=== PATIENT | female | born 1935 | race Caucasian/White ===

== ENCOUNTER → 2024-03-27 10:32 | Outpatient (REF) | payer OTHER, SELFPAY ==
[2024-03-27 13:46] LABS: Free T4 2.08 ng/dl (0.78-2.19)
[2024-03-27 14:00] LABS: TSH 0.14 uIU/ml (0.47-4.68)
== END ==
LOC: OLABN 10:32
PROVIDERS: ATTENDING PHYSICIAN Student in an Organized Health Care Education/Training Program
DX: E03.9 Hypothyroidism, unspecified (principal)
CPT/HCPCS: 84439; 84443

== ENCOUNTER → 2024-04-25 09:53 | Outpatient (REF) | payer OTHER, SELFPAY ==
[2024-04-25 12:08] LABS: Free T4 1.59 ng/dl (0.78-2.19)
[2024-04-25 12:22] LABS: TSH 0.52 uIU/ml (0.47-4.68)
== END ==
LOC: OLABN 09:53
PROVIDERS: ATTENDING PHYSICIAN Student in an Organized Health Care Education/Training Program
DX: E03.9 Hypothyroidism, unspecified (principal)
CPT/HCPCS: 36415; 84439; 84443

== ENCOUNTER → 2024-05-23 11:06 | Outpatient (REF) | payer OTHER, SELFPAY ==
[2024-05-23 13:00] LABS: Blood Urea Nitrogen 24 mg/dl (7-17); Calcium 8.8 mg/dl (8.4-10.2); Carbon Dioxide 22 mmol/L (22-30); Chloride 104 mmol/L (98-107); Glucose 85 mg/dl (70-99); Potassium 3.6 mmol/L (3.5-5.1); Sodium 137 mmol/L (135-145); eGFR 48.33
== END ==
LOC: OLABN 11:06
PROVIDERS: ATTENDING PHYSICIAN Student in an Organized Health Care Education/Training Program
DX: I10 Essential (primary) hypertension (principal)
CPT/HCPCS: 36415; 80048; 83735

== ENCOUNTER 2024-06-21 06:39 | Emergency (ER) | payer OTHER, SELFPAY ==
[2024-06-21] VITALS (9 sets, daily range): BP systolic 114–150; BP diastolic 48–70; BMI 25.8
--- NOTE | 2024-06-21 06:58 | ED.GENMED ---
History of Present Illness
General
Chief Complaint: Cold/Flu/URI Symptoms
Source: records
Exam Limitations: dementia
Time Seen by Provider: 06/21/24 06:48
History of Present Illness
History of Present Illness:
89-year-old female presents with shortness of breath hypoxia and lethargy. Time course uncertain. Patient is unable to add history. Patient has no specific complaints. However she is moderately lethargic.
Past History
Past History
ED Past Medical History: Asthma, CAD, COPD, CVA, Fibromyalgia, GERD, HTN, Hypercholesterolemia, [place], Hypothyroidism, Psychiatric (depression, Bipolar), Other (DVT/PE, C-diff, PNA, Vertigo,) and Other (Past medical history includes a recent redo of a
discectomy at L4-L5,, osteoporosis,, degenerative joint disease, , pneumonia. Fx R ankle)
ED Past Surgical History: Cardiac (Cardiac catheterization, Stent), Gynecological (partial Hysterectomy), Tonsilectomy and Other (Laminectomy, left knee arthroscopy, foraminotomy, cataract surgery, left and right breast tumors removed, left foot
surgery)
Social History
Tobacco: Former smoker
Alcohol: None
Drug: None
Personal:
Living: halfway
Employment: Retired
Family History
Family History: Other (n/c)
Review of Systems
Review of Systems
Unable to obtain full review of systems at this time due to: dementia
All Other Systems: Not applicable
Phy Exam
Physical Exam
Physical Exam:
GENERAL: Elderly and frail. Lethargic. Will nod to her responses and speak mildly however does not seem to want to follow commands.
EYE: Orbits normal.
NECK: Supple, no significant adenopathy.
ENT: Pharynx without erythema
CARDIAC: Regular rate and rhythm without any obvious murmurs.
LUNGS: No respiratory distress but mild end expiratory wheezing diffusely
ABDOMEN: Soft, without focal tenderness or distention
NEUROLOGICAL: Lethargic. Nonfocal. Will follow some simple commands.
SKIN: Warm and dry, no rash or lesion, no discoloration, skin intact.
MUSCULOSKELETAL: No edema,no deformity.Good color
Course
Orders/Labs/Results
Orders:
Orders
06/21/24 06:56
Cardiac Monitoring- Treatment ONCE
IV Insert/Care/Rem.- Treatment PRN
Ipratropium/Albuterol Sulfate [Duoneb] 3 ml INH R NOW STA
O2 Therapy [RESP] Stat
Titrate/Wean O2 to maintain O2 sat greater than (%): 93
Pulse Ox/cont/shift [RESP] Stat
Quantity: 1
06/21/24 06:57
Electrocardiogram (*1) Stat
Reason for Study: Other
Other Reason for Exam: pneumonia
EKG- Treatment ONCE
CR Chest Portable - 1 View Urgent
Comment:
Reason For Exam: Short of breath/hypoxia
Reason Study Needs to be Portable: Unable to Transport
06/21/24 07:09
Basic Metabolic Panel Urgent
COVID-19 Antigen Urgent
Source: Nasal Swab
Complete Blood Count/With Diff Urgent
NT-proBNP Urgent
Troponin I Urgent
Influenza A+B Rapid Molecular Urgent
ALEX Source: Nasal Swab
Specimen Description:
06/21/24 09:14
Furosemide [Lasix] 20 mg IV ONCE ONE
Abnormal Lab Results
06/21/24
07:09
RBC 3.74 L 10^6/uL
(4.20-5.40)
Hgb 10.1 L g/dL
(12.0-16.0)
Hct 30.4 L %
(37.0-47.0)
MPV 10.6 H fL
(7.4-10.4)
Absolute Lymphs (auto) 0.5 L 10^3/uL
(1.2-3.4)
Neutrophils % 79.8 H %
(42.2-75.2)
Lymphocytes % 7.5 L %
(20.5-51.1)
BUN 27 H mg/dl
(7-17)
Creatinine 1.1 H mg/dL
(0.6-1.0)
Glucose 102 H mg/dl
(70-99)
06/21/24 07:09
06/21/24 07:09
Vital Signs
Initial and Last Documented VS:
Initial Vital Signs
Temp Pulse Resp BP Pulse Ox
99.6 F 86 26 147/70 93
06/21/24 06:43 06/21/24 06:43 06/21/24 06:43 06/21/24 06:43 06/21/24 06:43
Last Documented Vital Signs
Temp Pulse Resp BP Pulse Ox
99.6 F 84 21 138/58 97
06/21/24 06:43 06/21/24 08:00 06/21/24 08:00 06/21/24 08:00 06/21/24 08:00
MDM/Problems Addressed
Differential Diagnosis Includes:
Elderly female lethargy diffuse expiratory wheezing. Previous records reviewed. Workup in progress. Check for infectious etiology CHF.
*Pulse Oximetry
Patient hypoxic: yes
*Critical Care Note
Total Time (30-74mins, 75-104mins- exclusive of procedures): Not Applicable
Data Reviewed
Review of Other/Old Records Reveals: Labs, Records, Testing and Discharge Summary
Update Note
Update Note:
Patient resting comfortably in no distress. Lungs sound much better after nebulizer treatment. Room air pulse ox 93 to 95%. Discussed at length with daughter. Likely all a viral URI although there could be a mild component of CHF. Discussed
inpatient versus outpatient management. Patient is at a nursing facility. We are both comfortable with outpatient management. Patient would tolerate this much better given her dementia and underlying medical issues
ED Attending Note
-
Portions of this chart may have been created with voice recognition software.� Occasional wrong word or��sound alike� substitutions may have occurred due to the inherent limitations of voice recognition software.
Discharge Plan
Departure
Patient Disposition: Home (Routine Discharge)
Date of Disposition: 06/21/24
Time of Disposition: 09:15
Patient with high blood pressure during this ER visit?: Yes
Discharge Problem:
Upper respiratory infection, Possible mild CHF
Instructions: Viral Upper Respiratory Infection, Adult (DC), Shortness of Breath, Adult ED, BLOOD PRESSURE
Prescriptions:
No Action
sertraline 100 MG tablet
100 mg PO DAILY
aspirin 81 MG tablet,chewable
81 mg PO DAILY 0RF
acetaminophen 325 MG tablet
650 mg PO Q4H PRN (Reason: mild pain)
pantoprazole 40 MG tablet,delayed release (DR/EC)
40 mg PO HS
bupropion HCl 150 MG tablet sustained-release 12 hr
150 mg PO DAILY
polyethylene glycol 3350 17 GRAMS powder in packet
17 grams PO DAILY PRN (Reason: constipation)
cetirizine 10 MG tablet
10 mg PO HS
cephalexin 250 MG capsule
250 mg PO DAILY
levothyroxine 100 mcg Tablet
100 mcg PO DAILY AT 0700
fluticasone propionate 50 mcg/actuation [place],Suspension
2 spray INTRANASAL DAILY
hydrochlorothiazide 12.5 mg tablet
6.25 mg PO DAILY Qty: 30 0RF
risperidone 0.5 mg Tablet
0.25 mg PO Q6HPRN PRN (Reason: Irritability)
risperidone 0.25 mg Tablet
0.25 mg PO DAILY
risperidone 0.5 mg Tablet
0.5 mg PO HS
amoxicillin-pot clavulanate 500-125 mg tablet
1 tab PO BID Qty: 14 0RF
Referrals:
Vinny Gifford DO [Family Provider] - Follow up in 2-3 days
Activity Restrictions/Additional Instructions:
Recommend a albuterol treatment every 4 hours as needed for wheezing and cough
Interventions
Interventions:
*Risk Screen - Suicide Last Done: 06/21/24 06:43
*General Assessment Last Done: 06/21/24 06:43
*Neglect/Abuse Screening Last Done: 06/21/24 06:43
ED- Fall Risk Assessment Last Done: 06/21/24 07:18
*ED COVID-19 Vaccine History Last Done: 06/21/24 07:18
ED- Pulmonary Assessment Last Done: 06/21/24 07:18
Discharge Date and Time
Print Language: CROATIAN
[2024-06-21] MEDS: DUONEB 3 ML INH (07:09)
[2024-06-21 07:41] LABS: % Basophils 0.3 % (0-2); % Eosinophils 2.6 % (0-6); % Immature Granulocytes 0.5 % (0-0.5); % Lymphocytes 7.5 % (20.5-51.1); % Monocytes 9.3 % (1.7-9.3); % Neutrophils 79.8 % (42.2-75.2); Absolute Eosinophils 0.2 10^3/uL (0-0.7); Absolute Lymphocytes 0.5 10^3/uL (1.2-3.4); Absolute Monocytes 0.6 10^3/uL (0.1-0.6); Absolute Neutrophils 4.9 10^3/uL (1.4-6.5); Hematocrit 30.4 % (37.0-47.0); Hemoglobin 10.1 g/dL (12.0-16.0); Mean Corp Hgb Conc. 33.2 g/dL (33.0-37.0); Mean Corpuscular Volume 81.3 fL (81.0-99.0); Mean Platelet Volume 10.6 fL (7.4-10.4); Nucleated Red Blood Cells % 0 %; Platelet Count 141 10^3/uL (130-400); Red Blood Cell Count 3.74 10^6/uL (4.20-5.40); Red Cell Dist. Width 14.2 % (11.5-14.5); White Blood Cell Count 6.1 10^3/uL (4.8-10.8)
[2024-06-21 07:55] LABS: Blood Urea Nitrogen 27 mg/dl (7-17); COVID-19 Antigen Negative (Negative); Carbon Dioxide 27 mmol/L (22-30); Chloride 103 mmol/L (98-107); Estimated Creatinine Clearance 29 ml/min; Glucose 102 mg/dl (70-99); Potassium 4.3 mmol/L (3.5-5.1); Sodium 140 mmol/L (135-145); eGFR 48.33
[2024-06-21 08:05] LABS: NT-proBNP 2410 pg/ml; Troponin I 0.015 ng/ml
[2024-06-21] MEDS: LASIX 20 MG IV (10:38)
== END 2024-06-21 12:42 | disposition home or self-care (01) ==
LOC: EMR 06:39
PROVIDERS: EMERGENCY PHYSICIAN Emergency Medicine; FAMILY PHYSICIAN Student in an Organized Health Care Education/Training Program
DX: J06.9 Acute upper respiratory infection, unspecified (principal); J45.909 Unspecified asthma, uncomplicated; I25.10 Atherosclerotic heart disease of native coronary artery without angina pectoris; E03.9 Hypothyroidism, unspecified; E78.00 Pure hypercholesterolemia, unspecified; F03.90 Unspecified dementia, unspecified severity, without behavioral disturbance, psychotic disturbance, mood disturbance, and anxiety; I10 Essential (primary) hypertension; K21.9 Gastro-esophageal reflux disease without esophagitis; M19.90 Unspecified osteoarthritis, unspecified site; M79.7 Fibromyalgia; M81.0 Age-related osteoporosis without current pathological fracture; Z86.718 Personal history of other venous thrombosis and embolism; Z86.73 Personal history of transient ischemic attack (TIA), and cerebral infarction without residual deficits; Z87.891 Personal history of nicotine dependence; Z95.5 Presence of coronary angioplasty implant and graft
CPT/HCPCS: 99283; 94640; 96374; 71045; 80048; 83880; 84484; 85025; 87502; 87811; 93005

== ENCOUNTER 2024-09-24 17:33 | Inpatient (IN) | payer OTHER, SELFPAY ==
[2024-09-24] VITALS (8 sets, daily range): BP systolic 137–164; BP diastolic 66–124
[2024-09-24 13:07] LABS: % Basophils 0.2 % (0-2); % Immature Granulocytes 0.9 % (0-0.5); % Lymphocytes 5.2 % (20.5-51.1); % Monocytes 8.6 % (1.7-9.3); % Neutrophils 85.1 % (42.2-75.2); Absolute Immature Granulocytes 0.1 10^3/uL (0-0.05); Absolute Lymphocytes 0.5 10^3/uL (1.2-3.4); Absolute Monocytes 0.8 10^3/uL (0.1-0.6); Absolute Neutrophils 7.9 10^3/uL (1.4-6.5); Hematocrit 33.8 % (37.0-47.0); Hemoglobin 11.1 g/dL (12.0-16.0); Mean Corp Hgb Conc. 32.8 g/dL (33.0-37.0); Mean Corpuscular Volume 85.1 fL (81.0-99.0); Mean Platelet Volume 10.3 fL (7.4-10.4); Nucleated Red Blood Cells % 0 %; Platelet Count 203 10^3/uL (130-400); Red Blood Cell Count 3.97 10^6/uL (4.20-5.40); Red Cell Dist. Width 14.1 % (11.5-14.5); White Blood Cell Count 9.3 10^3/uL (4.8-10.8)
[2024-09-24 13:21] LABS: Lactic Acid 1.1 mmol/L (0.7-2.0)
[2024-09-24 13:22] LABS: ALT (SGPT) 13 U/L (0-35); AST (SGOT) 25 U/L (14-36); Albumin 3.7 g/dl (3.5-5.0); Alkaline Phosphatase 117 U/L (38-126); Blood Urea Nitrogen 29 mg/dl (7-17); Calcium 8.6 mg/dl (8.4-10.2); Carbon Dioxide 23 mmol/L (22-30); Chloride 109 mmol/L (98-107); Glucose 145 mg/dl (70-99); Potassium 2.8 mmol/L (3.5-5.1); Sodium 144 mmol/L (135-145); Total Bilirubin 0.7 mg/dl (0.2-1.3); eGFR 39.55
[2024-09-24 13:24] LABS: COVID-19 Antigen Negative (Negative)
--- NOTE | 2024-09-24 14:01 | ED.GENMED ---
History of Present Illness
General
Chief Complaint: Cold/Flu/URI Symptoms
Source: family and ambulance crew
Time Seen by Provider: 09/24/24 13:32
History of Present Illness
History of Present Illness:
89-year-old female with past medical history of dementia, previous CVA, COPD, CAD, hypertension, hyperlipidemia, previous DVT presenting to the emergency department for evaluation of reported fever, cough and lethargy that started within the last 24
to 48 hours, found to have a fever of 103 at the [facility] today, EMS on arrival noted patient's pulse ox was 85% on room air and placed on 4 L via nasal cannula and administered 700 mL of normal saline. EMS also notes patient
had been given 650 mg of Tylenol prior to their arrival. Patient unable to provide any history at this present time. Daughter who is at the bedside states that she last saw her mother on Tuesday and at that time had been in her usual state of
health.
Past History
Past History
ED Past Medical History: Asthma, CAD, COPD, CVA, Fibromyalgia, GERD, HTN, Hypercholesterolemia, [place], Hypothyroidism, Psychiatric (depression, Bipolar), Other (DVT/PE, C-diff, PNA, Vertigo,) and Other (Past medical history includes a recent redo of a
discectomy at L4-L5,, osteoporosis,, degenerative joint disease, , pneumonia. Fx R ankle)
ED Past Surgical History: Cardiac (Cardiac catheterization, Stent), Gynecological (partial Hysterectomy), Tonsilectomy and Other (Laminectomy, left knee arthroscopy, foraminotomy, cataract surgery, left and right breast tumors removed, left foot
surgery)
Social History
Tobacco: Former smoker
Alcohol: None
Drug: None
Personal:
Living: intermediate
Employment: Retired
Family History
Family History: Other (n/c)
Review of Systems
Review of Systems
All Other Systems: ROS reviewed and negative except as documented in HPI and ROS
Phy Exam
Physical Exam
Physical Exam:
GENERAL: Awake but none conversational, intermittently following commands, in no apparent distress
HEAD: NCAT
EYE: Clear conjunctiva
NECK: Supple
ENT: o/p clr, mmm.
CARDIAC: Tachycardic rate and rhythm
LUNGS: Clear breath sounds bilaterally, no acute respiratory distress, no wheezes/rales/rhonchi
ABDOMEN: Soft, without focal tenderness, no r/g, no cvat
NEUROLOGICAL: Unable to assess, intermittently following commands
SKIN: Hot to the touch and dry, skin intact.
MUSCULOSKELETAL: No edema, well perfused.
PSYCH: Unable to assess
Scores
Heart Failure Risk
Heart Failure Risk Score: Not Applicable
Heart Score for Chest Pain Patients
STEMI patient?: Not applicable
Withdrawal Assessment of Alcohol
Withdrawal Assessment Completed?: Not applicable
Course
Orders/Labs/Results
Orders:
Orders
09/24/24 12:47
Electrocardiogram (*1) Urgent
Reason for Study: Other
Other Reason for Exam: Possible Sepsis
Cardiac Monitoring- Treatment ONCE
IV Insert/Care/Rem.- Treatment PRN
O2 Therapy [RESP] Urgent
Titrate/Wean O2 to maintain O2 sat greater than (%): 93
Special Instructions: TO MAINTAIN CONTINUOUS O2 SATS > OR = 93%
Pulse Ox/cont/shift [RESP] Urgent
Quantity: 1
Special Instructions: CONTINUOUS
09/24/24 12:48
EKG- Treatment ONCE
09/24/24 12:53
Complete Blood Count/With Diff Urgent
Comprehensive Metabolic Panel Urgent
Lactic Acid Q4H
Comment: ON ICE, CANCEL 2ND ORDER IF FIRST LACTIC ACID LEVEL <2
09/24/24 12:56
COVID-19 Antigen Urgent
Source: Nasal Swab
Influenza A+B Rapid Molecular Urgent
ALEX Source: Nasal Swab
Specimen Description:
09/24/24 13:38
0.9% Sodium Chloride 1000 ml [Nss] 1,900 ml IV NOW STA
Potassium Chloride [KCl] 40 meq PO NOW STA
Potassium Chloride [KCl] 20 meq 0.9% Sodium Chloride 250 ml [Nss] 250 ml IV NOW
09/24/24 13:39
CT Chest PE Study Urgent
Comment:
Reason For Exam: tachycardic, hypoxia, hx of DVT
09/24/24 13:48
Potassium Chloride [KCl] 20 meq 0.9% Sodium Chloride 250 ml [Nss] 250 ml IV NOW
09/24/24 14:01
0.9% Sodium Chloride 1000 ml [Nss] 1,000 ml IV BOLUS
0.9% Sodium Chloride 250 ml [Nss] 250 ml IV BOLUS
09/24/24 14:35
Blood Culture Q30M
ALEX Source: Blood/Venous
Specimen Description:
Blood Culture Q30M
ALEX Source: Blood/Venous
Specimen Description:
09/24/24 15:15
Urinalysis Reflex To Culture Urgent
Date Specimen was Collected: 09/24/24
Time Specimen was Collected: 15:14
Urine Microscopic Reflex Cult Urgent
Urine Culture Urgent
ALEX Source: U
Specimen Description:
Obtained by: Random
Date Specimen was Collected: 09/24/24
Time Specimen was Collected: 15:14
09/24/24 15:26
Piperacillin/Tazo 3.375 Gram [Zosyn] 3.375 gram in 50 ml IV NOW
Vancomycin [Vancocin] 1,500 mg 0.9% Sodium Chloride 500 ml [Nss] 500 ml IV NOW
Abnormal Lab Results
09/24/24 09/24/24
12:53 15:15
RBC 3.97 L 10^6/uL
(4.20-5.40)
Hgb 11.1 L g/dL
(12.0-16.0)
Hct 33.8 L %
(37.0-47.0)
MCHC 32.8 L g/dL
(33.0-37.0)
Abs Immat Gran (auto) 0.1 H 10^3/uL
(0-0.05)
Absolute Neuts (auto) 7.9 H 10^3/uL
(1.4-6.5)
Absolute Lymphs (auto) 0.5 L 10^3/uL
(1.2-3.4)
Absolute Monos (auto) 0.8 H 10^3/uL
(0.1-0.6)
Immature Gran % 0.9 H %
(0-0.5)
Neutrophils % 85.1 H %
(42.2-75.2)
Lymphocytes % 5.2 L %
(20.5-51.1)
Potassium 2.8 L mmol/L
(3.5-5.1)
Chloride 109 H mmol/L
(98-107)
BUN 29 H mg/dl
(7-17)
Creatinine 1.3 H mg/dL
(0.6-1.0)
Glucose 145 H mg/dl
(70-99)
Ur Occult Blood Reflex 2+ A
(Negative)
Urine Nitrite (Reflex) Positive A
(Negative)
Urine RBC 3-6 A /HPF
(0-2)
Urine Bacteria (Reflex) Many A
(Negative)
Urine Albumin (Reflex) 3+ A
(Neg - Trace)
09/24/24 12:53
09/24/24 12:53
Vital Signs
Initial and Last Documented VS:
Initial Vital Signs
Temp Pulse Resp BP Pulse Ox
100.5 F H 117 42 164/84 93
09/24/24 12:48 09/24/24 12:48 09/24/24 12:48 09/24/24 12:48 09/24/24 12:48
Last Documented Vital Signs
Temp Pulse Resp BP Pulse Ox
100.5 F H 117 42 164/84 95
09/24/24 12:48 09/24/24 12:48 09/24/24 12:48 09/24/24 12:48 09/24/24 14:05
MDM/Problems Addressed
Differential Diagnosis Includes:
Sepsis, pneumonia, urinary tract infection, PE, dehydration, COVID, flu
MDM/Problems Addressed:
89-year-old female presenting to the emergency department for evaluation of fever of 103, found to be hypoxic to 85% on room air, currently on 3 L via nasal cannula in the ER with saturation between 92 and 95%. Patient repeat temperature is 100.5
here. She is tachycardic and tachypneic. Given her history of DVT and currently not anticoagulated will obtain a CTA of the chest to rule out PE. Sepsis workup initiated. Patient received 700 mL of normal saline on the way to the hospital so
will only dose an additional 1200 mL of fluids. Will order antibiotics once cultures and urine completed. Anticipate admission.
Chronic conditions affecting care: COPD and Neurological disorder (Dementia)
*Radiology
Radiology exam reviewed: radiology read reviewed
*Pulse Oximetry
Patient hypoxic: yes
*EKG
Heart Rate: 118
Rate: tachycardiac
Rhythm: sinus
[place]: normal axis
Ischemia: T-wave inversion
*Cold Type Composing Machine Operator Interpretation
Rate: tachycardiac
Rhythm: sinus
*Critical Care Note
Total Time (30-74mins, 75-104mins- exclusive of procedures): Not Applicable
Data Reviewed
Review of Other/Old Records Reveals: Labs and Records
Source: records and family
Patient Management
Discussion with other providers: Hospitalist
Escalation/DeEscalation of care consider admission/obs:
Patient CTA of the chest shows no evidence for pulmonary embolism however there is bilateral lower lobe consolidations concerning for infectious etiology however malignancy cannot be excluded. In the meantime will cover with broad-spectrum
antibiotics, will cover for hospital-acquired pneumonia given residence in long-term care facility. Urine did show nitrite positive urine however only 0-2 WBCs so suspect likely colonization but she is being covered for UTI as well. Hospitalist
team accepts for continued evaluation and treatment.
ED Attending Note
-
Portions of this chart may have been created with voice recognition software.� Occasional wrong word or��sound alike� substitutions may have occurred due to the inherent limitations of voice recognition software.
Discharge Plan
Departure
Patient Disposition: Admit
Date of Disposition: 09/24/24
Time of Disposition: 15:27
Presentation/result/management discussed w/ accepting MD/DO: Hospitalist
Discharge Problem:
Pneumonia, UTI (urinary tract infection), Altered mental status
Prescriptions:
No Action
sertraline 100 MG tablet
100 mg PO DAILY
aspirin 81 MG tablet,chewable
81 mg PO DAILY 0RF
acetaminophen 325 MG tablet
650 mg PO Q4H PRN (Reason: mild pain)
pantoprazole 40 MG tablet,delayed release (DR/EC)
40 mg PO HS
bupropion HCl 150 MG tablet sustained-release 12 hr
150 mg PO DAILY
polyethylene glycol 3350 17 GRAMS powder in packet
17 grams PO DAILY PRN (Reason: constipation)
cetirizine 10 MG tablet
10 mg PO HS
cephalexin 250 MG capsule
250 mg PO DAILY
levothyroxine 100 mcg Tablet
100 mcg PO DAILY AT 0700
fluticasone propionate 50 mcg/actuation [place],Suspension
2 spray INTRANASAL DAILY
hydrochlorothiazide 12.5 mg tablet
6.25 mg PO DAILY Qty: 30 0RF
risperidone 0.5 mg Tablet
0.25 mg PO Q6HPRN PRN (Reason: Irritability)
risperidone 0.25 mg Tablet
0.25 mg PO DAILY
risperidone 0.5 mg Tablet
0.5 mg PO HS
amoxicillin-pot clavulanate 500-125 mg tablet
1 tab PO BID Qty: 14 0RF
Referrals:
Vinny Gifford DO [Family Provider] -
Interventions
Interventions:
*General Assessment Last Done: 09/24/24 12:48
*Neglect/Abuse Screening Last Done: 09/24/24 12:48
*ED COVID-19 Vaccine History Last Done: 09/24/24 13:11
ED- Pulmonary Assessment Last Done: 09/24/24 13:07
Discharge Date and Time
Print Language: GEORGIAN
[2024-09-24] MEDS: KCL 260 MEQ IV (14:28)
[2024-09-24] MEDS: NSS 1000 IV ×2 (14:28→20:40)
[2024-09-24] MEDS: NSS 250 IV (14:29)
[2024-09-24 15:23] LABS: Urine Albumin 3+ (Neg - Trace); Urine Bilirubin Negative (Negative); Urine Character Clear (Clear); Urine Color Yellow; Urine Glucose Negative (Negative); Urine Ketone Negative (Negative); Urine Leukocyte Negative (Negative); Urine Nitrite Positive (Negative); Urine Occult Blood 2+ (Negative); Urine Urobilinogen Negative (Neg - 1+)
[2024-09-24 15:38] LABS: Urine Squamous Cell 0-2 /LPF (Few)
[2024-09-24 15:40] LABS: Urine Bacteria Many (Negative); Urine White Cell 0-2 /HPF (0-5)
[2024-09-24] MEDS: ZOSYN 50 IV ×2 (16:06→21:44)
--- NOTE | 2024-09-24 16:17 | HPS.HSE ---
Family Physician
-
Family Physician: Vinny Gifford,
Chief Complaint
-
Fever and change of mental status
History of Present Illness
89-year-old woman with past medical history of:
dementia,
previous CVA,
COPD,
CAD,
hypertension,
hyperlipidemia,
previous DVT
presents with fever, cough and lethargy that started within the last 24 to 48 hours. She was found to have a fever of 103 at the [facility] today. Her pulse ox was 85% on room air and she was placed on 4 L via nasal cannula and
administered 700 mL of normal saline. Patient unable to provide any history at this present time. Daughter who is at the bedside states that she last saw her mother on Tuesday and at that time had been in her usual state of health. At the time
of my interview, she did not appear to be in distress, but was still not able to answer questions.
Medical History
Past Medical History
Past Medical History: Reports Other
Additional Past Medical History:
Asthma,
CAD,
COPD,
CVA,
Fibromyalgia,
GERD,
essential HTN,
Hypercholesterolemia,
[place],
Hypothyroidism
depression,
Bipolar
DVT/PE,
C-diff,
PNA,
Vertigo
recent redo of a discectomy at L4-L5
osteoporosis,
degenerative joint disease,
pneumonia
Fx R ankle
Cardiac catheterization, Stent
partial Hysterectomy
Tonsilectomy
Laminectomy,
left knee arthroscopy,
foraminotomy,
cataract surgery,
left and right breast tumors removed,
left foot surgery
Past Surgical History: Reports Other
Additional Past Surgical History:
See above
Social History
Unable to obtain full social history at this time due to: Acuity
Tobacco: Non-smoker
Alcohol: None
Drug: None
Living: [facility]
Family History
Family History: Not pertinent
Allergies / Home Medications
Allergies reflects when Allergies were last updated in [facility].
Home Medications with original date entered in [facility]
Allergy/Medication List:
Allergies
Allergy/AdvReac Type Severity Reaction Status Date / Time
atorvastatin Allergy Unknown Verified 09/24/24 13:10
gemfibrozil Allergy Unknown Verified 09/24/24 13:10
house dust Allergy Congestion, Verified 01/06/23 15:12
nasal
drip, cough
hydrocodone Allergy Unknown Verified 09/24/24 13:10
mold Allergy Congestion, Verified 01/06/23 15:12
nasal
drip, cough
NSAIDS (Non-Steroidal Allergy Unknown Verified 09/24/24 13:10
Anti-Inflamma
simvastatin Allergy Unknown Verified 09/24/24 13:10
azithromycin AdvReac elevated Verified 09/24/24 13:10
LFT's
Home Medications
sertraline 100 mg tablet 100 mg PO DAILY Depression 01/25/17
aspirin 81 mg chewable tablet 81 mg PO DAILY 06/09/17
acetaminophen 325 mg tablet 650 mg PO Q4HPRN PRN mild pain/fever 07/27/17
cetirizine 10 mg tablet 10 mg PO DAILYPRN PRN seasonal allergies 05/12/19
polyethylene glycol 3350 17 gram oral powder packet 17 grams PO DAILYPRN PRN constipation 05/12/19
cephalexin 250 mg capsule 250 mg PO MOWEFR UTI prevention 10/18/19
fluticasone propionate 50 mcg/actuation nasal spray,suspension 2 spray intranasal DAILY seasonal allergic rhinitis due to pollen 04/21/22
hydrochlorothiazide 12.5 mg tablet 6.25 mg (1/2 x 12.5 mg) PO DAILY #30 tabs 04/21/22
risperidone 0.25 mg tablet 0.25 mg PO BID Irritability 08/31/22
albuterol sulfate 2.5 mg/3 mL (0.083 %) solution for nebulization 2.5 mg inhalation R [id number] PRN cough/wheezing 09/24/24
bisacodyl 10 mg rectal suppository 10 mg [place] DAILYPRN PRN 3 days no bm, mom ineffective 09/24/24
bupropion HCl 75 mg tablet 75 mg PO DAILY 09/24/24
levothyroxine 112 mcg tablet 112 mcg PO DAILY 09/24/24
oseltamivir 30 mg capsule (Tamiflu) 30 mg PO QPM 09/24/24
pantoprazole 20 mg tablet,delayed release 20 mg PO DAILY 09/24/24
sennosides 8.6 mg-docusate sodium 50 mg tablet (Senna-S) 1 tab-cap PO DAILY 09/24/24
Review of Systems
-
Unable to obtain full review of systems at this time due to: Dementia
History Source: Patient
Physical Exam
Vital Signs
Vital Signs
Temp Pulse Resp BP Pulse Ox
100.5 F H 117 42 164/84 95
09/24/24 12:48 09/24/24 12:48 09/24/24 12:48 09/24/24 12:48 09/24/24 14:05
Physical Exam
General: Well Developed, Well Nourished, No Apparent Distress and Comfortable
HEENT: Nose Appears Normal and Ears Appear Normal
Respiratory: Crackles and Decreased Breath Sounds
Cardiac: S1/S2, Regular Rhythm and Tachycardia
GI: Soft, Non Tender and Non Distended
Musculoskeletal: No Clubbing, No Cyanosis and No Edema
Skin: Warm and Dry; No Rash
Neuro: Awake and Alert
Psych: Calm
Laboratory Results
-
09/24/24 12:53
09/24/24 12:53
Laboratory Results
Lactic Acid Cancelled 09/24/24 12:56
Total Bilirubin 0.7 mg/dl (0.2-1.3) 09/24/24 12:53
AST 25 U/L (14-36) 09/24/24 12:53
ALT 13 U/L (0-35) 09/24/24 12:53
Alkaline Phosphatase 117 U/L (38-126) 09/24/24 12:53
Data Reviewed
-
Lab Data: Labs Reviewed by me
Impression/Plan
-
IMPRESSION:
89 woman with HARRIS-PNA, significantly affected vitals. High mortality risk given age, comorbidity and diagnosis.
K 2.8
BUN/Creat 29/1.3
Heart rate 117
Resp rate 42-[address] of chest:
Bilateral lower lobe consolidations with air bronchograms which may be inflammatory/infectious or represent prominent atelectasis.
Recommend follow-up imaging to confirm complete resolution particularly in light of mediastinal and left hilar lymphadenopathy, malignancy cannot be excluded.
No findings to suggest central pulmonary embolism, evaluation of lower lobe bilateral pulmonary artery branches limited as a result of consolidations.
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
PLAN:
1. Sepsis, pulmonary source. Healthcare associated
Vanco and Zosyn and sepsis protocol
IV fluids
IMU monitoring untol vitals no longer severely altered
2. Hypokalemia - likely poor po intake and HCTZ
Replete K
Check mag
Recheck in am
3. Change of mental status - likely deliriumm from metabolic encephalopathy
Treat PNA
Continue usual risperidone
4. Chronic kidney disease - appears to be at baseline
Check function daily
5. Continue home meds for:
COPD
Hypothyroidism
Essential HTN
GERD
CAD
VCD for DVTp
Code: DNR
[2024-09-24] MEDS: VANCOCIN 530 MG IV (16:54)
[2024-09-24] MEDS: TYLENOL 650 MG PO (18:41)
[2024-09-24] MEDS: RISPERDAL 0.25 MG PO (21:43)
[2024-09-24] MEDS: TAMIFLU 30 MG PO (21:43)
[2024-09-25] VITALS (19 sets, daily range): BP systolic 122–180; BP diastolic 53–95; PULSE 85; O2SAT 94
--- NOTE | 2024-09-25 02:03 | PTCARENOTE ---
Pt brought up by ED. Pt drowsy arousable to voice minimal response. Afebrile. Labs attempted multiple times with out success. Will retry after more hydration. IV fluids started. Skin assessment done, scar on lower back. Assessment care and vitals as
charted.
[2024-09-25] MEDS: NSS 1000 IV ×2 (02:19→17:16)
[2024-09-25] MEDS: SYNTHROID 112 MCG PO (04:46)
[2024-09-25] MEDS: ZOSYN 50 IV (04:46)
[2024-09-25 05:19] LABS: Hematocrit 30.2 % (37.0-47.0); Hemoglobin 9.5 g/dL (12.0-16.0); Mean Corp Hgb Conc. 31.5 g/dL (33.0-37.0); Mean Corpuscular Hgb 27.3 pg (27.0-31.0); Mean Corpuscular Volume 86.8 fL (81.0-99.0); Platelet Count 167 10^3/uL (130-400); Red Blood Cell Count 3.48 10^6/uL (4.20-5.40); Red Cell Dist. Width 14.3 % (11.5-14.5); White Blood Cell Count 9.6 10^3/uL (4.8-10.8)
--- NOTE | 2024-09-25 05:34 | PTCARENOTE ---
Addendum entered by Janine Dumont RN 09/25/24 06:09:
Morning labs showing low K , up from admit lab, 2.8-3. Night ANIMAL RIDE ATTENDANT made aware along with there are not apparent cardiac changed.
Original Note:
Pt appearing to be more alert and easily arousable this morning. Pt labs were obtained successfully. Pt remains on 2LNC spo2 97%.
[2024-09-25 05:37] LABS: Vancomycin Random 14.5 ug/ml
[2024-09-25 05:41] LABS: Blood Urea Nitrogen 24 mg/dl (7-17); Calcium 7.6 mg/dl (8.4-10.2); Carbon Dioxide 22 mmol/L (22-30); Chloride 113 mmol/L (98-107); Glucose 103 mg/dl (70-99); Sodium 144 mmol/L (135-145); eGFR 48.33
[2024-09-25 06:25] LABS: TSH Reflex To Free T4 2.23 uIU/ml (0.47-4.68)
--- NOTE | 2024-09-25 07:26 | W.PN.HOSP.TC ---
Today's Communication/Plan
-
cont abx
ID eval
follow cultures
Incentive Spirometer, Acapella, VEST therapy
Duoneb R QID
blood pressure control
Wean O2 supplementation as tolerated
ST/PT/OT
Assessment / Plan
Assessment / Plan
Physical Exam
General: No acute distress, appears comfortable at this time
HEENT: Normocephalic Atraumatic moist mucus membrane
Respiratory: wheezing, coughing
Cardiac: S1/S2, Regular Rhythm and Tachycardia
GI: Soft, Non Tender and Non Distended
Musculoskeletal: No Clubbing, No Cyanosis and No Edema
Skin: Warm and Dry; No Rash
Neuro: AOx1 oriented only to self
Psych: Calm
89[facility] Dementia Hx CVA COPD CAD HTN HLD hx DVT here for sepsis pneumonia.
CT of chest:
Bilateral lower lobe consolidations with air bronchograms which may be inflammatory/infectious or represent prominent atelectasis.
Recommend follow-up imaging to confirm complete resolution particularly in light of mediastinal and left hilar lymphadenopathy, malignancy cannot be excluded.
No findings to suggest central pulmonary embolism, evaluation of lower lobe bilateral pulmonary artery branches limited as a result of consolidations.
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 (known to patient's daughter Jessica)
PLAN:
# Sepsis Pneumonia
#COPD exacerbation
#Acute Hypoxia
IMU
no significant hypotension or lactic acidosis
Duoneb R QID, hold off on steroids for now
Wean O2 supplementation as tolerated
Incentive Spirometer, Acapella, VEST therapy
Vanco and Zosyn and sepsis protocol
IV fluids
Follow Cultures
ID eval requested
# Hypokalemia
monitor and replete as necessary
#AMS possible metabolic encephalopathy vs progression underlying dementia
#Anxiety/Depression
Treat PNA as above
Continue home risperidone sertraline bupropion
wheelchair bound for several years
daughter Jessica notes cognitive decline seems to be particularly worsening over the past few months
ST/PT/OT eval requested
# Chronic kidney disease
Monitor renal function
appears stable at this time
#Hypertension
cont home HCTZ
Hydralazine prn SBP>160 or DBP>100
VCD for DVTp
Code: DNR
Discussed with patient and patient's daughter Jessica
I spent a total of 50 minutes with the patient or on the floor. More than 50% of this time involved counseling and coordination of care.
Anticipated Discharge: 24 - 48 hours
Subjective/Interval History
-
Date of Service: September 25, 2024
Seen and examined at bedside in no acute distress resting comfortably in bed. Oriented only to self. Hard of hearing. On nasal cannula, non-labored respiration.
Objective Data
-
Labs:
Laboratory Results
09/25/24
04:55
WBC 9.6
Hgb 9.5 L
Hct 30.2 L
Plt Count 167
Sodium 144
Potassium 3.0 L
Chloride 113 H
Carbon Dioxide 22
BUN 24 H
Creatinine 1.1 H
Glucose 103 H
Calcium 7.6 L
Vital Signs:
Vital Signs
Temp Pulse Resp BP Pulse Ox
98.3 F 72 23 122/53 98
09/25/24 04:46 09/25/24 06:00 09/25/24 06:00 09/25/24 06:00 09/25/24 06:00
I&O
09/24/24 09/25/24 09/26/24
06:59 06:59 06:59
Intake Total 2100 / 2100
Output Total 200 / 200
Balance 1900 / 1900
[2024-09-25] MEDS: KCL 270 MEQ IV (07:29)
[2024-09-25] MEDS: WELLBUTRIN REGULAR RELEASE 75 MG PO (08:06)
[2024-09-25] MEDS: PROTONIX 20 MG PO (08:06)
[2024-09-25] MEDS: ZOLOFT 100 MG PO (08:06)
[2024-09-25] MEDS: RISPERDAL 0.25 MG PO ×2 (08:06→21:16)
[2024-09-25] MEDS: SENOKOT-S 1 TABLET PO (08:06)
[2024-09-25] MEDS: ORETIC 6.25 MG PO (08:06)
[2024-09-25] MEDS: LOW STRENGTH ASPIRIN 81 MG PO (08:21)
--- NOTE | 2024-09-25 08:24 | PHA.VAN.IN ---
Assessment
- Assessment
Renal Function: Appears similar to baseline
Concomitant Antimicrobials: piperacillin/tazobactam, oseltamivir
Laboratory Tests
09/25/24
04:55
Random Vancomycin 14.5
Level drawn ~12H after 1500mg loading dose
Plan
- Plan
Initial / Loading Dose: 1500mg - 09/24 16:54
Maintenance Regimen: dosing by level - redose today with 750mg
Monitoring: random 09/26 06
MRSA Screen: Ordered per protocol
Pharmacokinetics Vancomycin I
- -
Patient Age: 89
Patient Sex: Female
Vancomycin Day #: 1
Indication: Pulmonary/Respiratory
Requesting Provider: Dr. Phipps
Pertinent Antimicrobial Allergies:
azithromycin - elevated LFTs
Height / Weight:
Height 5 ft
Actual Weight 57 kg
Pertinent Past Medical History: CKD
- Vital Signs / Lab Results
Temp Pulse Resp BP Pulse Ox
98.3 F 72 23 122/53 98
09/25/24 04:46 09/25/24 06:00 09/25/24 06:00 09/25/24 06:00 09/25/24 06:00
Lab Results - Hematology
09/24/24 09/25/24
12:53 04:55
WBC 9.3 9.6
Lab Results - Chemistry
09/24/24 09/25/24
12:53 04:55
BUN 29 H 24 H
Creatinine 1.3 H 1.1 H
Albumin 3.7
09/24/24 09/24/24 09/24/24
12:53 12:56 20:00
Lactic Acid 1.1 Cancelled Cancelled
Lab Results - Urine
09/24/24
15:15
Urine Nitrite (Reflex) Positive A
Leukocyte Esterase Rfl Negative
Urine WBC (Reflex) 0-2
Ur Squamous Epith Cells 0-2
Urine Bacteria (Reflex) Many A
Microbiology Results
09/24/24 12:56 Influenza Types A & B (ROSIO) - Final
Nasal Swab Negative for Influenza A & B, NAAT
Negative results must be combined with clinical observations
and patient history.
Nucleic Acid Amplification test (NAAT)performed on the
[employer] platform.
[2024-09-25] MEDS: DUONEB 3 ML INH ×3 (10:17→19:27)
--- NOTE | 2024-09-25 10:21 | CON.ID ---
Consultation
-
Date/Time Consultation Requested: September 25, 2024 0855
Date/Time Consultation Performed: September 25, 2024 1025
Requesting Provider: Dr. Krissy Hernandez
Performing Provider: Dr. Ashley Knox
Reason for Consultation: Sepsis, pneumonia, senior care resident
Chief Complaint / Past History
Chief Complaint
Wet cough
History of Present Illness
History obtained from review medical records since patient has dementia and unable to provide a full meaningful history. She is an 89-year-old SNF with history of dementia, COPD, CAD who was noted to have wet cough and agonal breathing as well as
temperature 103 at the senior care and therefore sent to the ED September 24. Temperature was 100.[address] shows bilateral lower lobe consolidation with air bronchograms. She was started on vancomycin and Zosyn. Of note patient also came
in on oseltamivir 30 mg daily x 5 days started on September 22 as per senior care med list. It is unclear whether or not she tested positive for influenza at that time. Influenza test is negative here September 24. Today patient does report cough
minimally productive. No rhinorrhea or sore throat. No chills. No diarrhea. She is up-to-date with her flu vaccine.
Past History
Additional Past Medical History:
Dementia
Hypertension
COPD
CAD Status post stent
CVA
DVT/PE
C. difficile (2014, 2016)
CKD
Fibromyalgia
Hypothyroidism
Bipolar disorder
Depression
Osteoporosis
Vertigo
Laminectomy
L4-L5 discectomy
Left knee arthroscopic surgery
Bilateral breast tumors excision
Left foot surgery
Allergy History:
atorvastatin Allergy (Verified 09/24/24 13:10)
Unknown
gemfibrozil Allergy (Verified 09/24/24 13:10)
Unknown
house dust Allergy (Verified 01/06/23 15:12)
Congestion, nasal drip, cough
hydrocodone Allergy (Verified 09/24/24 13:10)
Unknown
mold Allergy (Verified 01/06/23 15:12)
Congestion, nasal drip, cough
NSAIDS (Non-Steroidal Anti-Inflamma Allergy (Verified 09/24/24 13:10)
Unknown
simvastatin Allergy (Verified 09/24/24 13:10)
Unknown
azithromycin Adverse Reaction (Verified 09/24/24 13:10)
elevated LFT's
Medications Reviewed: Yes
Current Antibiotics:
Vancomycin d2
Zosyn d2
Oseltamivir
Social History
Tobacco: Non-Smoker
Alcohol: None
Drug: None
Living: Shelter
Family History
Family History: Not Pertinent
Review of Systems
Review of Systems
General: Negative Chills
HEENT: Negative Pharyngitis
Respiratory: Cough; Negative Dyspnea
Gasteroenterology: Negative Nausea, Vomiting or Diarrhea
Genital / Urological: Negative Dysuria or Flank Pain
Endocrine: Weakness
All systems: All other systems were reviewed and were negative
Vital Signs
Temp Pulse Resp BP Pulse Ox
98.1 F 91 23 169/86 97
09/25/24 07:50 09/25/24 08:05 09/25/24 08:05 09/25/24 08:05 09/25/24 09:50
Selected Entries
09/24/24
12:48 09/24/24
18:30
Temp 100.5 F H 100.9 F H
Physical Exam
Physical Exam
Constitutional: Comfortable and Chronically Ill
Head: Other (No frontal or maxillary sinus tenderness)
Eyes: No Conjunctival Hemorrhage and Sclera Anicteric
Cardiovascular: Regular Rate and S1/S2
Pulmonary: Rales (crackles bilateral bases)
Gastrointestinal: Soft, Non Tender, Non Distended and Normal Bowel Sounds
Genito-Urinary: Negative CVA Tenderness
Extremities: Negative Edema
Neurological: Awake
Lab / Diagnostic Study Results
09/25/24 04:55
09/25/24 04:55
Abs Immat Gran (auto) 0.1 10^3/uL (0-0.05) H 09/24/24 12:53
Absolute Neuts (auto) 7.9 10^3/uL (1.4-6.5) H 09/24/24 12:53
Absolute Lymphs (auto) 0.5 10^3/uL (1.2-3.4) L 09/24/24 12:53
Absolute Monos (auto) 0.8 10^3/uL (0.1-0.6) H 09/24/24 12:53
Absolute Basos (auto) 0.0 10^3/uL (0-0.2) 09/24/24 12:53
Immature Gran % 0.9 % (0-0.5) H 09/24/24 12:53
Neutrophils % 85.1 % (42.2-75.2) H 09/24/24 12:53
Lymphocytes % 5.2 % (20.5-51.1) L 09/24/24 12:53
Monocytes % 8.6 % (1.7-9.3) 09/24/24 12:53
Eosinophils % 0.0 % (0-6) 09/24/24 12:53
Basophils % 0.2 % (0-2) 09/24/24 12:53
Lactic Acid Cancelled 09/24/24 20:00
Ur Squamous Epith Cells 0-2 /LPF (Few) 09/24/24 15:15
Microbiology Results
Micro:
09/25/24 04:48 Nasal Screen MRSA (PCR) - Pending
Nose
09/25/24 04:55 Blood Culture - Pending
Blood/Venous
09/25/24 04:55 Blood Culture - Pending
Blood/Venous
09/24/24 15:15 Urine Culture - Pending
Urine
09/24/24 14:35 Blood Culture - Pending
Blood/Venous
09/24/24 14:35 Blood Culture - Pending
Blood/Venous
09/24/24 12:56 Influenza Types A & B (ROSIO) - Final
Nasal Swab Negative for Influenza A & B, NAAT
Negative results must be combined with clinical observations
and patient history.
Nucleic Acid Amplification test (NAAT)performed on the
[employer] platform.
09/24/[address]: Bilateral lower lobe consolidations with air bronchograms which may be inflammatory/infectious or represent prominent atelectasis. Recommend follow-up imaging to confirm complete resolution particularly in light of mediastinal and
left hilar lymphadenopathy, malignancy cannot be excluded. No findings to suggest central pulmonary embolism, evaluation of lower lobe bilateral pulmonary artery branches limited as a result of consolidations. Asbestos related pleural disease again
seen.
Assessment / Plan
# Bilateral pneumonia
# Fever
- Blood cx's pending.
- Sputum culture, if able to produce
- check urine legionella and strep pneumo antigens
- Replace Zosyn with cefepime.
- Continue Vancomycin for now.
- Follow temps.
# Presumed recent influenza infection
- Pt started on oseltamivir 30mg qd x 5d on 09/22/24 at .
- Influenza test negative here 09/24
- Can complete course through tomorrow.
Care Review
Plan reviewed with: Physician (Dr. Hernandez)
[2024-09-25 10:40] LABS: Magnesium 1.7 mg/dl (1.6-2.3)
[2024-09-25] MEDS: NSS IV ×2 (11:11→17:16)
[2024-09-25] MEDS: ZOSYN IV (11:11)
[2024-09-25] MEDS: CALCIUM GLUCONATE 100 IV (11:12)
[2024-09-25] MEDS: KCL ELIXIR 40 MEQ PO (11:14)
[2024-09-25] MEDS: MAXIPIME 2000 MG IV (12:32)
[2024-09-25] MEDS: STERILE WATER FOR INJECTION 10 ML IV (12:32)
[2024-09-25] MEDS: VANCOCIN 150 IV (12:32)
--- NOTE | 2024-09-25 14:20 | PTOTSP ---
Speech Language Pathology
Pt seen for clinical bedside swallow evaluation. P.O. trials of puree, regular solids, and thin liquids provided. Prolonged mastication of regular solids noted. Pt endorsed this being too difficult to chew. Audible swallow noted at times, which
may be indicative of incoordination. No overt coughing with P.O. trials immediately. One minute after P.O. completed, reclined slightly with prolonged coughing episode. Question whether related to change in position or P.O. intake. CT chest
showing B lower lobe consolidation. Hx of VSE in 2010 with functional swallow. Was admitted in August 2022 with aspiration episode.
Recommend:
(1) Downgrade to IDDSI Level 5 (minced/moist) and thin liquids
(2) Aspiration precautions: sit upright, slow rate, full supervision
(3) Meds whole in puree
(4) VSE 09/26
(5) SURVEY RESEARCH ASSOCIATE to continue to follow
--- NOTE | 2024-09-25 15:42 | CM ---
CM spoke with nursing at [facility]
Pt is a LTC resident on a bed-hold, has been there for approx 1 year
Pt is AxO to self and family
Pt is non-ambulatory, sit/stand mechanical lift
Unable to self propel wheelchair
Not able to pivot
Pt is able to feed self with support and does participate in minimal self care tasks
No O2 baseline and good skin integrity
PCP- Vinny Gifford
Rx- [facility]
Return SNF referral sent to [facility]
Discharge Disposition- return [facility] for LTC
--- NOTE | 2024-09-25 16:22 | PTOTSP ---
PATIENT REQUIRING FULL ASSIST OF 2 PEOPLE FOR SUPINE<>SIT ON SIDE OF BED. RECOMMEND STAFF USE MONET LIFT TO GET PATIENT OUT OF BED TO CHAIR THIS IS HER BASELINE. NO FURTHER SKILLED THERAPY SERVICES INDICATED. WILL DISCHARGE FROM P.T.
[2024-09-25] MEDS: TAMIFLU 30 MG PO (17:16)
[2024-09-25] MEDS: APRESOLINE 5 MG IV (18:06)
[2024-09-26] VITALS (12 sets, daily range): BP systolic 111–180; BP diastolic 74–122; O2SAT 92; BMI 25.1
--- NOTE | 2024-09-26 02:20 | DOWNTIME ---
There was a [employer] Client Explosive Specialist Downtime on 09/26/2024 from 0100 to 09/26/2023 at 0205 . Downtime documentation of patient's care, including medication administrations, has been reconciled in the electronic record per guidelines. Refer to the
patient's paper chart under the miscellaneous tab to see printed paper medication records and downtime forms.
[2024-09-26 05:19] LABS: Hematocrit 29.5 % (37.0-47.0); Hemoglobin 9.6 g/dL (12.0-16.0); Mean Corp Hgb Conc. 32.5 g/dL (33.0-37.0); Mean Corpuscular Hgb 27.7 pg (27.0-31.0); Mean Platelet Volume 10.6 fL (7.4-10.4); Platelet Count 184 10^3/uL (130-400); Red Blood Cell Count 3.47 10^6/uL (4.20-5.40); Red Cell Dist. Width 14.4 % (11.5-14.5); White Blood Cell Count 10.7 10^3/uL (4.8-10.8)
[2024-09-26] MEDS: SYNTHROID PO (05:28)
[2024-09-26 05:29] LABS: Blood Urea Nitrogen 16 mg/dl (7-17); Calcium 8.2 mg/dl (8.4-10.2); Carbon Dioxide 22 mmol/L (22-30); Chloride 112 mmol/L (98-107); Estimated Creatinine Clearance 31 ml/min; Glucose 96 mg/dl (70-99); Magnesium 1.6 mg/dl (1.6-2.3); Phosphorus 1.9 mg/dl (2.5-4.5); Potassium 3.4 mmol/L (3.5-5.1); Sodium 143 mmol/L (135-145); eGFR > 60.00
--- NOTE | 2024-09-26 05:29 | PTCARENOTE ---
Received pt at change of shift. Oriented only to self; unable to state where she was and the year. Pt given PM medications but had persistent coughing after. Holding morning snythroid dose d/t aspiration precautions.
[2024-09-26] MEDS: NSS 1000 IV (07:00)
--- NOTE | 2024-09-26 07:06 | W.PN.HOSP.TC ---
Today's Communication/Plan
-
Medically stable for downgrade to Tele
Replete Potassium
nebs prn
cont abx as per ID
follow cultures
Assessment / Plan
Assessment / Plan
Physical Exam
General: No acute distress, appears comfortable at this time
HEENT: Normocephalic Atraumatic moist mucus membrane
Respiratory: clear to auscultation b/l
Cardiac: S1/S2, Regular Rhythm and Tachycardia
GI: Soft, Non Tender and Non Distended
Musculoskeletal: No Clubbing, No Cyanosis and No Edema
Skin: Warm and Dry; No Rash
Neuro: AOx1 oriented only to self
Psych: Calm
89F [facility] resident Dementia Hx CVA COPD CAD HTN HLD hx DVT here for sepsis pneumonia.
CT of chest:
Bilateral lower lobe consolidations with air bronchograms which may be inflammatory/infectious or represent prominent atelectasis.
Recommend follow-up imaging to confirm complete resolution particularly in light of mediastinal and left hilar lymphadenopathy, malignancy cannot be excluded.
No findings to suggest central pulmonary embolism, evaluation of lower lobe bilateral pulmonary artery branches limited as a result of consolidations.
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 (known to patient's daughter Jessica)
PLAN:
# Sepsis Pneumonia
#COPD exacerbation
#Acute Hypoxia
IMU
no significant hypotension or lactic acidosis
Duoneb R QID, hold off on steroids for now
Wean O2 supplementation as tolerated
Incentive Spirometer, Acapella, VEST therapy
received empiric Vanco Zosyn sepsis protocol
IV fluids
urine cx pos gram neg bacilli
single blood culture 09/24/24 anaerobic bottle gram + cocci clusters (suspect contaminant) rest of blood cultures remain NGTD
ID eval appreciated cont Vanc, zosyn switched to cefipime, cont
# Hypokalemia
monitor and replete as necessary
#AMS possible metabolic encephalopathy vs progression underlying dementia
#Anxiety/Depression
Treat PNA as above
Continue home risperidone sertraline bupropion
wheelchair bound for several years
daughter Jessica notes cognitive decline seems to be particularly worsening over the past few months
ST eval with VSE appreciated, cont mince moist and thin liquids, meds whole in puree, aspiration precautions
PT/OT eval appreciated no skilled needs, patient to return to [place] when stable for discharge.
# Chronic kidney disease III
Monitor renal function
appears stable at this time
#Hypertension
cont home HCTZ
Hydralazine prn SBP>160 or DBP>100
VCD for DVTp
Code: DNR
Medically stable for downgrade to Tele
Discussed with patient and patient's daughter Jessica
I spent a total of 50 minutes with the patient or on the floor. More than 50% of this time involved counseling and coordination of care.
Anticipated Discharge: 24 - 48 hours
Subjective/Interval History
-
Date of Service: September 26, 2024
No acute distress. appears relatively well. Off oxygen supplementation, stable respiratory status on room air.
Objective Data
-
Labs:
Laboratory Results
09/26/24
04:54
WBC 10.7
Hgb 9.6 L
Hct 29.5 L
Plt Count 184
Sodium 143
Potassium 3.4 L
Chloride 112 H
Carbon Dioxide 22
BUN 16
Creatinine 0.9
Glucose 96
Calcium 8.2 L
Vital Signs:
Vital Signs
Temp Pulse Resp BP Pulse Ox
99.2 F 90 23 169/75 93
09/26/24 03:00 09/26/24 06:00 09/26/24 06:00 09/26/24 06:00 09/26/24 06:00
I&O
09/25/24 09/26/2409/27/25
06:59 06:59 06:59
Intake Total 2099 / 2099 1460 / 1460
Output Total 200 / 200 700 / 700
Balance 1899 760 / 760
[2024-09-26] MEDS: DUONEB 3 ML INH ×3 (08:09→15:56)
[2024-09-26] MEDS: KCL ELIXIR 40 MEQ PO (08:53)
[2024-09-26] MEDS: MAGNESIUM SULFATE 50 IV (08:53)
[2024-09-26] MEDS: POTASSIUM PHOSPHATE 259.0909 MEQ IV (08:53)
[2024-09-26] MEDS: APRESOLINE 5 MG IV (08:53)
[2024-09-26] MEDS: WELLBUTRIN REGULAR RELEASE 75 MG PO (08:54)
[2024-09-26] MEDS: ZOLOFT 100 MG PO (08:55)
[2024-09-26] MEDS: ORETIC 6.25 MG PO (08:55)
[2024-09-26] MEDS: LOW STRENGTH ASPIRIN 81 MG PO (08:55)
[2024-09-26] MEDS: SENOKOT-S 1 TABLET PO (08:56)
[2024-09-26] MEDS: RISPERDAL 0.25 MG PO ×2 (08:56→21:08)
[2024-09-26] MEDS: PROTONIX PO (08:56)
--- NOTE | 2024-09-26 09:00 | PTCARENOTE ---
Pt c/o missing phone. This RN looked in sheets and blankets. Pt reported employment appeals examiner is in personal belongings bag, no phone employment appeals examiner found in belongings bag. This RN called personal cell phone number provided in chart, message stated, 'This phone number
is no longer in service'. Pt made aware.
--- NOTE | 2024-09-26 09:30 | PTOTSP ---
Speech Language Pathology
VIDEOFLUOROSCOPIC SWALLOWING EXAMINATION (VSE) completed. Of note, view partially obstructed by shoulders/positioning. Mod oral dysphagia noted characterized by oral holding, anterior leakage of liquids, and oral residue. No swallow noted with
moderately thick liquids via tsp despite max cueing (verbal cueing, model, empty spoon to lips, downward lingual pressure). This also happened with puree with need for liquid wash (thin liquids) to initiate swallow. Suspect at least partially
affected by cognitive status and being in fluoro room/consuming barium. Deferred regular solids during study given oral holding of other textures. Pharyngeal phase of swallow WFL. No persistent penetration or any aspiration noted during study.
Recommend:
(1) Continue IDDSI Level 5 (Minced/moist) solids and thin liquids
(2) Aspiration precautions: sit upright, slow rate, full supervision
(3) Meds whole in puree
(4) RESIDENTIAL GREEN BUILDING DESIGNER to continue to follow
--- NOTE | 2024-09-26 10:25 | PTCARENOTE ---
Assumed care of patient this morning. She is only oriented to herself. Pt has a weak voice and therefore difficulty saying words. While patient was giving medications, she held the apple sauce in her mouth for a while and would not swallow. Pt
instructed to swallow multiple times. She even said 'I heard you' but continued to hold the applesauce in her mouth. Eventually she swallowed with a sip of water. Patient is coughing nonstop therefore unsure if it is correlating with oral intake.
Pt then sent for VSE. Assessment, care and VS as charted.
--- NOTE | 2024-09-26 11:19 | PHA.VAN.FU ---
Vancomycin Assessment / Plan
- Assessment
Renal Function: SCR Decreasing
WBC's are: WNL
In the past 24 hrs, patient has been: Afebrile
Concomitant Antimicrobials: cefepime, oseltamivir
- Assessment - Therapeutic Drug Monitoring
Random Level: 12.2 - drawn ~24H after previous dose of 750mg
- Dosing Plan
Dosing by Level: Re-dose today (Vanc 750mg)
- Monitoring Plan
No level(s) ordered at this time: consider levels in next few days
- Follow Up
Pharmacy will continue to follow.
Vancomycin Follow UP
- -
Patient Age: 89
Patient Sex: Female
Vancomycin Day #: 2
Indication: Pulmonary/Respiratory
Requesting Provider: Dr. Phipps / [facility]
Pertinent Antimicrobial Allergies:
azithromycin - elevated LFTs
Height / Weight:
Height 5 ft
Actual Weight 58.2 kg
Pertinent Past Medical History: CKD
- Vital Signs / Lab Results
Temp Pulse Resp BP Pulse Ox
99.2 F 114 19 156/75 94
09/26/24 07:50 09/26/24 10:00 09/26/24 10:00 09/26/24 10:00 09/26/24 10:00
Lab Results - Hematology
09/24/24 09/25/24 09/26/24
12:53 04:55 04:54
WBC 9.3 9.6 10.7
Lab Results - Chemistry
09/24/24 09/25/24 09/26/24
12:53 04:55 04:54
BUN 29 H 24 H 16
Creatinine 1.3 H 1.1 H 0.9
Estimated Creat Clear 31
Albumin 3.7
09/24/24 09/24/24 09/24/24
12:53 12:56 20:00
Lactic Acid 1.1 Cancelled Cancelled
Microbiology Results
09/24/24 15:15 Urine Culture - Preliminary
Urine Gram negative bacilli
09/24/24 14:35 Blood Culture - Preliminary
Blood/Venous Positive culture in progress
Gram Stain - Preliminary
09/25/24 04:55 Blood Culture - Preliminary
Blood/Venous No Growth in 24 hours- Final report to follow
09/25/24 04:55 Blood Culture - Preliminary
Blood/Venous No Growth in 24 hours- Final report to follow
09/25/24 18:38 Legionella Urinary Antigen - Final
Urine Negative for Legionella pneumophila Serogroup 1 antigen.
A negative result does not rule out the possiblity of
Legionella infection due to other serogroups or species of
Legionella. Clinical correlation is recommended.
Streptococcus pneumoniae Antigen (M - Final
Negative for Streptococcus pneumoniae antigen.
A negative result does not exclude infection with
Streptococcus pneumoniae. Clinical correlation is
recommended.
09/24/24 14:35 Blood Culture - Preliminary
Blood/Venous No Growth in 24 hours- Final report to follow
09/25/24 04:48 Nasal Screen MRSA (PCR) - Final
Nose MRSA not detected - performed by PCR methodology.
09/24/24 12:56 Influenza Types A & B (ROSIO) - Final
Nasal Swab Negative for Influenza A & B, NAAT
Negative results must be combined with clinical observations
and patient history.
Nucleic Acid Amplification test (NAAT)performed on the
[employer] platform.
Therapeutic Drug Monitoring
Random Vancomycin 14.5 ug/ml 09/25/24 04:55
[2024-09-26] MEDS: STERILE WATER FOR INJECTION 10 ML IV (12:53)
[2024-09-26] MEDS: MAXIPIME 2000 MG IV (12:53)
[2024-09-26 13:03] LABS: Vancomycin Random 12.2 ug/ml
--- NOTE | 2024-09-26 13:24 | W.PN.ID1 ---
Date of Service
Date of Service: September 26, 2024
Today's Communication
Continue Vancomycin and cefepime
Assessment / Plan
# Bilateral pneumonia
# Fever - resolved
# GPC bacteremia 1 of 2 sets = suspect contaminant
- repeat bcx's x 2 neg to date
- urine legionella and strep pneumo antigen neg
- Video swallow - No aspiration
- Continue Vancomycin and cefepime for now (d3)
# Presumed recent influenza infection
- Pt started on oseltamivir 30mg qd x 5d on 09/22/24 at [facility].
- Influenza test negative here 09/24
- Complete course through today.
#Additional Past Medical History:
Dementia
Hypertension
COPD
CAD Status post stent
CVA
DVT/PE
C. difficile (2014, 2016)
CKD
Fibromyalgia
Hypothyroidism
Bipolar disorder
Depression
Osteoporosis
Vertigo
Laminectomy
L4-L5 discectomy
Left knee arthroscopic surgery
Bilateral breast tumors excision
Left foot surgery
Chief Complaint
-: Pneumonia
Subjective / Review of Systems
Dementia
Vital Signs / Physical Exam
Vital Signs
Vital Signs
Temp Pulse Resp BP Pulse Ox
99.2 F 90 30 134/122 96
09/26/24 07:50 09/26/24 12:00 09/26/24 12:00 09/26/24 12:00 09/26/24 12:06
Physical Exam
Constitutional: Comfortable and Chronically Ill
Pulmonary: Rales (crackles at basses)
Gastrointestinal: Soft, Non Tender and Non Distended
Neurological: Awake
Objective Data
Lab Data
Lab Results
09/26/24 04:54
09/26/24 04:54
Estimated Creat Clear 31 ml/min 09/26/24 04:54
Lactic Acid Cancelled 09/24/24 20:00
Total Bilirubin 0.7 mg/dl (0.2-1.3) 09/24/24 12:53
AST 25 U/L (14-36) 09/24/24 12:53
ALT 13 U/L (0-35) 09/24/24 12:53
Alkaline Phosphatase 117 U/L (38-126) 09/24/24 12:53
Most recent labs reviewed.
Micro Results:
09/24/24 15:15 Urine Culture - Preliminary
Urine Gram negative bacilli
09/24/24 14:35 Blood Culture - Preliminary
Blood/Venous Positive culture in progress
Gram Stain - Preliminary
09/25/24 04:55 Blood Culture - Preliminary
Blood/Venous No Growth in 24 hours- Final report to follow
09/25/24 04:55 Blood Culture - Preliminary
Blood/Venous No Growth in 24 hours- Final report to follow
09/25/24 18:38 Legionella Urinary Antigen - Final
Urine Negative for Legionella pneumophila Serogroup 1 antigen.
A negative result does not rule out the possiblity of
Legionella infection due to other serogroups or species of
Legionella. Clinical correlation is recommended.
Streptococcus pneumoniae Antigen (M - Final
Negative for Streptococcus pneumoniae antigen.
A negative result does not exclude infection with
Streptococcus pneumoniae. Clinical correlation is
recommended.
09/24/24 14:35 Blood Culture - Preliminary
Blood/Venous No Growth in 24 hours- Final report to follow
09/25/24 04:48 Nasal Screen MRSA (PCR) - Final
Nose MRSA not detected - performed by PCR methodology.
09/24/24 12:56 Influenza Types A & B (ROSIO) - Final
Nasal Swab Negative for Influenza A & B, NAAT
Negative results must be combined with clinical observations
and patient history.
Nucleic Acid Amplification test (NAAT)performed on the
[employer] platform.
09/24/[address]: Bilateral lower lobe consolidations with air bronchograms which may be inflammatory/infectious or represent prominent atelectasis. Recommend follow-up imaging to confirm complete resolution particularly in light of mediastinal and
left hilar lymphadenopathy, malignancy cannot be excluded. No findings to suggest central pulmonary embolism, evaluation of lower lobe bilateral pulmonary artery branches limited as a result of consolidations. Asbestos related pleural disease again
seen.
[2024-09-26] MEDS: VANCOCIN 150 IV (14:53)
--- NOTE | 2024-09-26 17:15 | PTCARENOTE ---
Received pt from IMU via stretcher. Pt pulled over to bed with assist x2. injection molding machine tender placed. AAOx1. Tearful. Assessed and unable to orient to room. Pt unable to verbalize understanding of call abebe. Call abebe placed with in close reach. Bed
alarm placed and plugged in. Will continue to monitor.
[2024-09-26] MEDS: TAMIFLU 30 MG PO (18:22)
[2024-09-27 03:45] VITALS: BP 150/73
[2024-09-27] MEDS: SYNTHROID PO (05:11)
[2024-09-27 06:00] VITALS: BMI 24.9
[2024-09-27 06:06] LABS: Hematocrit 27.8 % (37.0-47.0); Hemoglobin 9.3 g/dL (12.0-16.0); Mean Corp Hgb Conc. 33.5 g/dL (33.0-37.0); Mean Corpuscular Hgb 27.8 pg (27.0-31.0); Mean Corpuscular Volume 83.2 fL (81.0-99.0); Mean Platelet Volume 10.6 fL (7.4-10.4); Platelet Count 190 10^3/uL (130-400); Red Blood Cell Count 3.34 10^6/uL (4.20-5.40); Red Cell Dist. Width 14.3 % (11.5-14.5); White Blood Cell Count 9.6 10^3/uL (4.8-10.8)
[2024-09-27 06:34] LABS: Blood Urea Nitrogen 15 mg/dl (7-17); Calcium 8.1 mg/dl (8.4-10.2); Carbon Dioxide 24 mmol/L (22-30); Chloride 108 mmol/L (98-107); Estimated Creatinine Clearance 28 ml/min; Glucose 94 mg/dl (70-99); Magnesium 2.1 mg/dl (1.6-2.3); Phosphorus 3.1 mg/dl (2.5-4.5); Potassium 3.3 mmol/L (3.5-5.1); Sodium 141 mmol/L (135-145); eGFR 54.19
[2024-09-27 06:39] LABS: Vancomycin Random 16.4 ug/ml
[2024-09-27 07:05] VITALS: BP 186/110
--- NOTE | 2024-09-27 07:26 | W.PN.HOSP.TC ---
Today's Communication/Plan
-
discharge
Assessment / Plan
Assessment / Plan
Physical Exam
General: No acute distress, appears comfortable at this time
HEENT: Normocephalic Atraumatic moist mucus membrane
Respiratory: clear to auscultation b/l
Cardiac: S1/S2, Regular Rhythm mild Tachycardia
GI: Soft, Non Tender and Non Distended
Musculoskeletal: No Clubbing, No Cyanosis and No Edema
Skin: Warm and Dry; No Rash
Neuro: AOx1 oriented only to self
Psych: Calm
89F [facility] resident Dementia Hx CVA COPD CAD HTN HLD hx DVT here for sepsis pneumonia.
CT of chest:
Bilateral lower lobe consolidations with air bronchograms which may be inflammatory/infectious or represent prominent atelectasis.
Recommend follow-up imaging to confirm complete resolution particularly in light of mediastinal and left hilar lymphadenopathy, malignancy cannot be excluded.
No findings to suggest central pulmonary embolism, evaluation of lower lobe bilateral pulmonary artery branches limited as a result of consolidations.
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 (known to patient's daughter Jessica)
PLAN:
# Sepsis Pneumonia
#COPD exacerbation
#Acute Hypoxia
IMU admit since downgraded
no significant hypotension or lactic acidosis
Duoneb R QID de-escalated to prn, has not required
Incentive Spirometer, Acapella, VEST therapy completed
weaned off oxygen supplementation to room air
received empiric Vanco Zosyn sepsis protocol
IV fluids completed
urine cx ESBL E. coli benign colonization no need to treat as per ID
single blood culture 09/24/24 anaerobic bottle gram + cocci clusters (contaminant) rest of blood cultures remain NGTD
ID eval appreciated Vanc Cefipime transitioned to Augmentin to continue through 10/03/24
# Hypokalemia
monitor and replete as necessary
scheduled 20MeQ BID started, cont on discharge
#AMS possible metabolic encephalopathy vs progression underlying dementia
#Anxiety/Depression
Treat PNA as above
Continue home risperidone sertraline bupropion
wheelchair bound for several years
daughter Jessica notes cognitive decline seems to be particularly worsening over the past few months
ST eval with VSE appreciated, cont mince moist and thin liquids, meds whole in puree, aspiration precautions
PT/OT eval appreciated no skilled needs, patient to return to [facility] when stable for discharge.
Mental status since improved, likely baseline at this time
# Chronic kidney disease III
Monitor renal function
appears stable at this time
#Hypertension
cont home HCTZ
Hydralazine prn SBP>160 or DBP>100
VCD for DVTp
Code: DNR
Medically stable for discharge back to [facility] with outpatient follow up recommendations.
Discussed with patient and patient's daughter Jessica
Total Time Preparing Discharge ___40____ minutes including examination of the patient, summary of the hospital stay, instructions for continuing care to all relevant caregivers; and preparation of discharge records, prescriptions, and referral
forms if necessary.
Anticipated Discharge: Today
Subjective/Interval History
-
Date of Service: September 27, 2024
Seen and examined at bedside in no acute distress resting comfortably in bed. Stable respiratory status on room air.
Objective Data
-
Labs:
Laboratory Results
09/27/24
05:07
WBC 9.6
Hgb 9.3 L
Hct 27.8 L
Plt Count 190
Sodium 141
Potassium 3.3 L
Chloride 108 H
Carbon Dioxide 24
BUN 15
Creatinine 1.0
Glucose 94
Calcium 8.1 L
Vital Signs:
Vital Signs
Temp Pulse Resp BP Pulse Ox
99.2 F 95 16 150/73 94
09/27/24 03:45 09/27/24 03:45 09/27/24 03:45 09/27/24 03:45 09/27/24 03:45
I&O
09/26/24 09/27/24 09/28/24
06:59 06:59 06:59
Intake Total 1460 / 1460
Output Total 700 / 700 100 / 100
Balance 760 / 760 -100 / -100
[2024-09-27] MEDS: APRESOLINE 5 MG IV (07:47)
[2024-09-27] MEDS: LOW STRENGTH ASPIRIN 81 MG PO (07:48)
[2024-09-27] MEDS: RISPERDAL 0.25 MG PO (07:48)
[2024-09-27] MEDS: PROTONIX 20 MG PO (07:48)
[2024-09-27] MEDS: WELLBUTRIN REGULAR RELEASE 75 MG PO (07:48)
[2024-09-27] MEDS: ZOLOFT 100 MG PO (07:48)
[2024-09-27] MEDS: ORETIC 6.25 MG PO (07:48)
[2024-09-27] MEDS: SENOKOT-S 1 TABLET PO (07:49)
[2024-09-27] MEDS: FLUSH (NSS) 2 FLUSH IV (07:50)
[2024-09-27 09:03] VITALS: BP 150/71
--- NOTE | 2024-09-27 09:14 | PTCARENOTE ---
Lab informed this RN of critical urine cx result, result=positive for ESBL. made aware. Private room requested.
--- NOTE | 2024-09-27 09:29 | PTCARENOTE ---
Pt c/o missing phone. coil tester RN informed this RN that phone unable to be found throughout shift. Personal belongings bag and pockets of pt jacket assessed.
--- NOTE | 2024-09-27 09:49 | W.PN.ID1 ---
Date of Service
Date of Service: September 27, 2024
Today's Communication
Transition to Augmentin 500mg po bid through 10/03/24
Assessment / Plan
# Bilateral pneumonia, possible aspiration
# Fever - resolved
# Coag Neg Staph bacteremia 1 of 2 sets = suspect contaminant
-Mod oral dysphagia
- repeat bcx's x 2 neg to date
- urine legionella and strep pneumo antigen neg
- Transition Vancomycin and cefepime to Augmentin 500mg po bid through 10/03/24
# ESBL-E. coli bacteruria
- UA no pyuria
- No need to treat colonization
- Contact precaution
# Presumed recent influenza infection
- Pt started on oseltamivir 30mg qd x 5d on 09/22/24 at [facility].
- Influenza test negative here 09/24
- Completed course through 09/26.
#Additional Past Medical History:
Dementia
Hypertension
COPD
CAD Status post stent
CVA
DVT/PE
C. difficile (2014, 2016)
CKD
Fibromyalgia
Hypothyroidism
Bipolar disorder
Depression
Osteoporosis
Vertigo
Laminectomy
L4-L5 discectomy
Left knee arthroscopic surgery
Bilateral breast tumors excision
Left foot surgery
Chief Complaint
-: Pneumonia
Subjective / Review of Systems
Resting comfortably.
Vital Signs / Physical Exam
Vital Signs
Vital Signs
Temp Pulse Resp BP Pulse Ox
98.0 F 109 17 150/71 96
09/27/24 07:05 09/27/24 09:03 09/27/24 07:05 09/27/24 09:03 09/27/24 07:05
Physical Exam
Constitutional: No Acute Distress and Chronically Ill
Pulmonary: Coarse (bases)
Gastrointestinal: Soft, Non Tender, Non Distended and Normal Bowel Sounds
Extremities: Negative Edema
Objective Data
Lab Data
Lab Results
09/27/24 05:07
09/27/24 05:07
Estimated Creat Clear 28 ml/min 09/27/24 05:07
Lactic Acid Cancelled 09/24/24 20:00
Total Bilirubin 0.7 mg/dl (0.2-1.3) 09/24/24 12:53
AST 25 U/L (14-36) 09/24/24 12:53
ALT 13 U/L (0-35) 09/24/24 12:53
Alkaline Phosphatase 117 U/L (38-126) 09/24/24 12:53
Most recent labs reviewed.
Micro Results:
09/24/24 14:35 Blood Culture - Preliminary
Blood/Venous Coagulase neg. staphylococcus
Additional testing on request
Gram Stain - Preliminary
09/24/24 15:15 Urine Culture - Final
Urine Escherichia coli - ESBL
09/25/24 04:55 Blood Culture - Preliminary
Blood/Venous No Growth in 48 hours- Final report to follow
09/25/24 04:55 Blood Culture - Preliminary
Blood/Venous No Growth in 48 hours- Final report to follow
09/24/24 14:35 Blood Culture - Preliminary
Blood/Venous No Growth in 48 hours- Final report to follow
09/25/24 18:38 Legionella Urinary Antigen - Final
Urine Negative for Legionella pneumophila Serogroup 1 antigen.
A negative result does not rule out the possiblity of
Legionella infection due to other serogroups or species of
Legionella. Clinical correlation is recommended.
Streptococcus pneumoniae Antigen (M - Final
Negative for Streptococcus pneumoniae antigen.
A negative result does not exclude infection with
Streptococcus pneumoniae. Clinical correlation is
recommended.
09/25/24 04:48 Nasal Screen MRSA (PCR) - Final
Nose MRSA not detected - performed by PCR methodology.
09/24/24 12:56 Influenza Types A & B (ROSIO) - Final
Nasal Swab Negative for Influenza A & B, NAAT
Negative results must be combined with clinical observations
and patient history.
Nucleic Acid Amplification test (NAAT)performed on the
[employer] platform.
09/24/[address]: Bilateral lower lobe consolidations with air bronchograms which may be inflammatory/infectious or represent prominent atelectasis. Recommend follow-up imaging to confirm complete resolution particularly in light of mediastinal and
left hilar lymphadenopathy, malignancy cannot be excluded. No findings to suggest central pulmonary embolism, evaluation of lower lobe bilateral pulmonary artery branches limited as a result of consolidations. Asbestos related pleural disease again
seen.
Care Review
Plan reviewed with: Physician (Dr. Hernandez)
[2024-09-27] MEDS: AUGMENTIN 500 MG/125 MG 1 TABLET PO (10:54)
[2024-09-27] MEDS: KLOR-CON 20 MEQ PO (10:54)
[2024-09-27 11:05] VITALS: BP 154/87
--- NOTE | 2024-09-27 11:40 | PTCARENOTE ---
informed this RN of phone call with son inquiring about cell phone. Last time cell phone was used was Tuesday. Slip Tender made aware. This RN and Slip Tender evaluated room for cell phone.
--- NOTE | 2024-09-27 12:12 | W.DCSUMMARY ---
Discharge Summary
Discharge Data
Date of Admission: 09/24/24
Date of Discharge: 09/27/24
-
Pending Results: Yes
Additional Pending Results:
Official Culture Results
Discharge Plan
-
Patient Disposition: Custodial/SNF
Discharge Diagnosis/Procedures: Sepsis Pneumonia
COPD exacerbation
Acute Hypoxia resolved
Mild Hypokalemia
Chronic kidney disease stage III
Hypertension
Dementia
Condition: Fair
Diet: Other diet
Additional Diets: Mince Moist Diet
Activity: As tolerated
Driving Restrictions: No driving
Bathing Restrictions: None
Blood Work: Repeat CBC and BMP with primary care provider in 1 week of discharge.
Others Tests: Repeat CT chest with primary care provider in 1 month of discharge.
Other Services: ST
Activity Restrictions/Additional Instructions:
Please follow up with primary care provider in 1 week of discharge.
Augmentin prescribed for pneumonia to continue through 10/03/24 as per Infectious Disease recommendations. Hold home Keflex while on Augmentin, ok to resume when Augmentin completes.
Scheduled potassium supplementation daily prescribed for mild hypokalemia.
Tamiflu completed 5 days on 09/26/24, no need for further doses.
Please take medications as prescribed/recommended and follow up with primary care provider and/or other healthcare provider involved in your care for refills and/or further adjustment to your medication regimen as necessary.
Referrals:
Vinny Gifford DO [Family Provider] - in one week
Prescriptions:
New
amoxicillin-pot clavulanate 500-125 mg Tablet
1 tab PO Q12 Qty: 13 0RF
Rx Instructions:
10/03/24 is last day for antibiotics
potassium chloride [Klor-Con] 20 mEq Packet
20 meq PO DAILY Qty: 30 0RF
Continued
sertraline 100 MG tablet
100 mg PO DAILY
aspirin 81 MG tablet,chewable
81 mg PO DAILY 0RF
acetaminophen 325 MG tablet
650 mg PO Q4HPRN PRN (Reason: mild pain/fever)
polyethylene glycol 3350 17 GRAMS powder in packet
17 grams PO DAILYPRN PRN (Reason: constipation)
cetirizine 10 MG tablet
10 mg PO DAILYPRN PRN (Reason: seasonal allergies)
fluticasone propionate 50 mcg/actuation [place],Suspension
2 spray INTRANASAL DAILY
hydrochlorothiazide 12.5 mg tablet
6.25 mg PO DAILY Qty: 30 0RF
risperidone 0.25 mg Tablet
0.25 mg PO BID
albuterol sulfate 2.5 mg /3 mL (0.083 %) Solution For Nebulization
2.5 mg INHALATION R [id number] PRN (Reason: cough/wheezing)
sennosides-docusate sodium [Senna-S] 8.6-50 mg Tablet
1 tab-cap PO DAILY
pantoprazole 20 mg Tablet,Delayed Release (Dr/Ec)
20 mg PO DAILY
bisacodyl 10 mg Suppository
10 mg [place] DAILYPRN PRN (Reason: 3 days no bm, mom ineffective)
bupropion HCl 75 mg Tablet
75 mg PO DAILY
levothyroxine 112 mcg Tablet
112 mcg PO DAILY
Held
cephalexin 250 MG capsule
250 mg PO MOWEFR
Hold Instructions: Hold while on Augmentin. Ok to resume when Augmentin is completed.
Discontinued
oseltamivir [Tamiflu] 30 mg Capsule
30 mg PO QPM
Patient Comments:
09/24/24: to take for 5 days starting 09/22/24
Discharge Orders:
Discharge Patient (As Directed); Ordered 09/27/24
Ordered By: Krissy Hernandez
Discharge Date and Time
Print Language: [place]
--- NOTE | 2024-09-27 12:50 | PTCARENOTE ---
Patient dicharge order in. Nursing locomotive supervisor informed this RN no need to move patient to private unless discharge is postponed. meeting manager made aware.
--- NOTE | 2024-09-27 13:02 | PTCARENOTE ---
Throughout shift, ekg monitor alarms tachycardic at x's. HR 110's-120's. made aware.
[2024-09-27 15:05] VITALS: BP 119/78
--- NOTE | 2024-09-27 15:21 | CM ---
entered order for discharge.
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 No auth need no skilled needs at per PT.
Spoke with dgt Jessica [phone] she agrees with dc to return to [facility].
IMM reviewed and Jessica agreed with dc.
Ambulance requested. Medical nec form completed.
[facility]
report [phone]
fax [phone]
PLAN To [facility]
[2024-09-27] MEDS: REFRESH EYE DROPS (PF) 1 DROPS OPHTH (15:35)
--- NOTE | 2024-09-27 15:35 | PTCARENOTE ---
Pt c/o dry eyes, made aware, new order provided, see MAR.
== END 2024-09-27 18:34 | DRG 871 ==
LOC: 3 WEST ACU 17:33
PROVIDERS: Physician Assistant Medical; ADMITTING PHYSICIAN Internal Medicine; ATTENDING PHYSICIAN Internal Medicine; CONSULT PHYSICIAN Internal Medicine Infectious Disease; EMERGENCY PHYSICIAN Emergency Medicine; FAMILY PHYSICIAN Student in an Organized Health Care Education/Training Program
DX: A41.9 Sepsis, unspecified organism (principal); G93.41 Metabolic encephalopathy; J69.0 Pneumonitis due to inhalation of food and vomit; J44.0 Chronic obstructive pulmonary disease with (acute) lower respiratory infection; J44.1 Chronic obstructive pulmonary disease with (acute) exacerbation; F03.93 Unspecified dementia, unspecified severity, with mood disturbance; R09.02 Hypoxemia; E87.6 Hypokalemia; N18.30 Chronic kidney disease, stage 3 unspecified; I12.9 Hypertensive chronic kidney disease with stage 1 through stage 4 chronic kidney disease, or unspecified chronic kidney disease; F31.9 Bipolar disorder, unspecified; K59.00 Constipation, unspecified; Z86.73 Personal history of transient ischemic attack (TIA), and cerebral infarction without residual deficits; I25.10 Atherosclerotic heart disease of native coronary artery without angina pectoris; E78.00 Pure hypercholesterolemia, unspecified; Z86.718 Personal history of other venous thrombosis and embolism; M79.7 Fibromyalgia; K21.9 Gastro-esophageal reflux disease without esophagitis; I25.2 Old myocardial infarction; E03.9 Hypothyroidism, unspecified; M81.0 Age-related osteoporosis without current pathological fracture; M19.90 Unspecified osteoarthritis, unspecified site; Z95.5 Presence of coronary angioplasty implant and graft; Z88.8 Allergy status to other drugs, medicaments and biological substances; Z79.82 Long term (current) use of aspirin; J61 Pneumoconiosis due to asbestos and other mineral fibers; Z66 Do not resuscitate; Z87.891 Personal history of nicotine dependence; Z79.890 Hormone replacement therapy; Z90.711 Acquired absence of uterus with remaining cervical stump; R82.71 Bacteriuria; B96.20 Unspecified Escherichia coli [E. coli] as the cause of diseases classified elsewhere; Z11.52 Encounter for screening for COVID-19
CPT/HCPCS: 71275; 74230; 80048; 80053; 80202; 81003; 81015; 83605; 83735; 84100; 84443; 85025; 85027; 87040; 87077; 87086; 87147; 87186; 87205; 87449; 87502; 87641; 87811; 87899; 92610; 92611; 93005; 94640; 94669; 96361; 96374; 97162; 97166; 99285; Q9967

== ENCOUNTER → 2024-10-04 10:46 | Outpatient (REF) | payer OTHER, SELFPAY ==
[2024-10-04 11:40] LABS: Blood Urea Nitrogen 18 mg/dl (7-17); Calcium 9.1 mg/dl (8.4-10.2); Carbon Dioxide 27 mmol/L (22-30); Chloride 99 mmol/L (98-107); Glucose 89 mg/dl (70-99); Potassium 4.6 mmol/L (3.5-5.1); Sodium 142 mmol/L (135-145); eGFR 54.19
[2024-10-04 11:46] LABS: % Basophils 0.5 % (0-2); % Eosinophils 2.7 % (0-6); % Lymphocytes 18.1 % (20.5-51.1); % Monocytes 6.8 % (1.7-9.3); % Neutrophils 66.9 % (42.2-75.2); Absolute Eosinophils 0.2 10^3/uL (0-0.7); Absolute Immature Granulocytes 0.4 10^3/uL (0-0.05); Absolute Lymphocytes 1.6 10^3/uL (1.2-3.4); Absolute Monocytes 0.6 10^3/uL (0.1-0.6); Absolute Neutrophils 5.8 10^3/uL (1.4-6.5); Hemoglobin 9.8 g/dL (12.0-16.0); Mean Corp Hgb Conc. 31.6 g/dL (33.0-37.0); Mean Corpuscular Hgb 26.5 pg (27.0-31.0); Mean Corpuscular Volume 83.8 fL (81.0-99.0); Mean Platelet Volume 10.8 fL (7.4-10.4); Nucleated Red Blood Cells % 0 %; Platelet Count 286 10^3/uL (130-400); Red Cell Dist. Width 14.2 % (11.5-14.5); White Blood Cell Count 8.7 10^3/uL (4.8-10.8)
== END ==
LOC: OLABN 10:46
PROVIDERS: ATTENDING PHYSICIAN Student in an Organized Health Care Education/Training Program
DX: J18.9 Pneumonia, unspecified organism (principal)
CPT/HCPCS: 36415; 80048; 85025

== ENCOUNTER → 2025-04-01 10:27 | Outpatient (REF) | payer OTHER, SELFPAY ==
[2025-04-01 11:43] LABS: Hematocrit 27.7 % (37.0-47.0); Hemoglobin 9.2 g/dL (12.0-16.0); Mean Corp Hgb Conc. 33.2 g/dL (33.0-37.0); Mean Corpuscular Volume 84.5 fL (81.0-99.0); Nucleated Red Blood Cells % 0 %; Platelet Count 137 10^3/uL (130-400); Red Cell Dist. Width 13.9 % (11.5-14.5)
[2025-04-01 11:57] LABS: Blood Urea Nitrogen 28 mg/dl (7-17); Calcium 8.8 mg/dl (8.4-10.2); Carbon Dioxide 25 mmol/L (22-30); Chloride 104 mmol/L (98-107); Glucose 95 mg/dl (70-99); Potassium 4.0 mmol/L (3.5-5.1); Sodium 133 mmol/L (135-145); eGFR 43.27
== END ==
LOC: OLABN 10:27
PROVIDERS: ATTENDING PHYSICIAN Student in an Organized Health Care Education/Training Program
DX: R06.02 Shortness of breath (principal); R09.02 Hypoxemia
CPT/HCPCS: 36415; 80048; 85025

== ENCOUNTER → 2025-05-28 11:18 | Outpatient (REF) | payer OTHER, SELFPAY ==
[2025-05-28 12:49] LABS: TSH 0.73 uIU/ml (0.47-4.68)
== END ==
LOC: OLABN 11:18
PROVIDERS: ATTENDING PHYSICIAN Student in an Organized Health Care Education/Training Program
DX: E03.9 Hypothyroidism, unspecified (principal)
CPT/HCPCS: 36415; 84443